=== PATIENT | male | born 1955 | race Caucasian/White ===

== ENCOUNTER 2022-09-19 14:42 | Emergency (ER) | payer SELFPAY ==
[~2022-09-19] VITALS: Ht 167.6 cm; Wt 78.9 kg
--- NOTE | 2022-09-19 15:00 | NUR ---
[facility] unit [id number] als for s/p trip and fall. pt moved to bed 1. placed on cv monitor. report given to caroline roberson
[2022-09-19 15:10] VITALS: BP_SYST 142
--- NOTE | 2022-09-19 16:01 | NUR ---
PATIENT IN BED EYE CLOSE, ON RAT CULTURIST, EASILY AWAKEN., WILL CONTINUE TO MONITOR, AWAITING FOR EDP FOR ASSESSMENT.
--- NOTE | 2022-09-19 17:15 | NUR ---
[id number] eye close will continue to monitor.
--- NOTE | 2022-09-19 17:25 | NUR ---
patient taken to ct scan.
--- NOTE | 2022-09-19 18:34 | NUR ---
REPORT TO SHABBIR
--- NOTE | 2022-09-19 19:30 | NUR ---
Received report from BRYCE Boo; assuming care of patient at this time.
--- NOTE | 2022-09-19 19:35 | NUR ---
ER MD Beltran at bedside.
[2022-09-19 19:36] VITALS: BP_SYST 142
--- NOTE | 2022-09-19 19:36 | NUR ---
Patient given written and verbal discharge instructions and verbalizes understanding. ER MD discussed with patient the results and treatment provided. Patient in stable condition. ID arm band removed. Patient educated on pain management and to follow up with PMD. Pain Scale []. Opportunity for questions provided and answered. Patient in stable condition, awaiting a ride from family in ED waiting room. Nad noted at this time.
== END 2022-09-19 19:36 | disposition home or self-care (01) ==
LOC: SED 14:42
DX: S09.90XA Unspecified injury of head, initial encounter (principal); F10.129 Alcohol abuse with intoxication, unspecified; F12.929 Cannabis use, unspecified with intoxication, unspecified; E78.5 Hyperlipidemia, unspecified; I10 Essential (primary) hypertension; Z79.899 Other long term (current) drug therapy; W01.0XXA Fall on same level from slipping, tripping and stumbling without subsequent striking against object, initial encounter; Y93.89 Activity, other specified; Y92.89 Other specified places as the place of occurrence of the external cause; Y99.8 Other external cause status; Y90.6 Blood alcohol level of 120-199 mg/100 ml
CPT/HCPCS: 70450-TC; 72125-TC; 76376; 99284